=== PATIENT | female | born 1960 | race Caucasian/White ===

== ENCOUNTER 2023-10-31 12:08 | Outpatient (AMB) | payer BC, SELFPAY ==
--- NOTE | 2023-10-31 13:18 | AM.OFFWIN_ITS ---
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 Intake Note: pt is here for c/o left ear pain with mulp on left side of face with pain since Patient Tobacco Use Status: Never used Tobacco Allergies nefazodone [From Serzone] Allergy (Mild, Verified 10/31/23 14:07) Headache aspirin Adverse Reaction (Mild, Verified 10/31/23 14:07) Stomach Upset Medication List - Last Reconciled 10/31/23 by Carlos Tim MD clopidogrel 75 mg PO DAILY cyclobenzaprine 5 mg PO BEDTIME PRN duloxetine 30 mg PO BID ezetimibe 10 mg PO DAILY montelukast 10 mg PO DAILY valacyclovir (Valtrex) 500 mg PO BID verapamil ER 120 mg PO DAILY Do you need a note to return to daycare/school/sports/work: 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 Patient has a rash on the left side of the face and behind the left ear. Symptoms present for the past 3 or 4 days. It was very painful over the weekend but now the rash is less painful. No fatigue symptoms. PFSH Social History Patient Tobacco Use Status: Never used Tobacco Physical Exam Vital Signs: Last Vital Signs Temp 98.8 F 10/31/23 13:22 Pulse 86 10/31/23 13:22 BP 126/74 10/31/23 13:22 Pulse Ox 97 10/31/23 13:22 BMI result Body Mass Index 48.7 Skin Other: Vesicular rash along C2 on the left side of the face. Assessment & Plan Assessment & Plan (1) Herpes zoster: Code(s): B02.9 - Zoster without complications Plan: Self-limited illness. Valacyclovir called in. Patient does not need any medications for pain currently. Medications: New valacyclovir (Valtrex) 500 mg PO BID 14 tabs 0RF Coding Level of Care Code Est Pt Level 3 (96531) Diagnoses Herpes zoster B02.9
[2023-10-31 13:22] VITALS: BP 126/74; PULSE 86; TEMP 37.1; O2SAT 97; BMI 48.7
== END 2023-10-31 15:01 | disposition home or self-care (01) ==
PROVIDERS: PCP Family Medicine; Visit Provider Internal Medicine
DX: B02.9 Zoster without complications (principal)
CPT/HCPCS: 99213